=== PATIENT | female | born 1985 | race Caucasian/White ===

== ENCOUNTER 2020-11-23 12:12 | Outpatient (REF) | payer OTHER, SELFPAY ==
[2020-11-23 16:41] LABS: SARS COV2 PCR INHOUSE NEGATIVE (Negative)
== END 2020-11-23 12:13 | disposition home or self-care (01) ==
LOC: HO.LAB 12:12
PROVIDERS: Visit Provider Internal Medicine
DX: Z20.822 Contact with and (suspected) exposure to COVID-19 (principal)
CPT/HCPCS: U0003

== ENCOUNTER 2020-12-27 08:45 | Outpatient (REF) | payer OTHER, SELFPAY ==
[2020-12-27 11:26] LABS: Thyroid Stimulating Hormone 0.93 uIU/mL (0.32-4.0)
[2020-12-28 12:24] LABS: BV Int Neg Control Negative (Negative); BV Int Pos Control Positive (Positive)
[2020-12-29 13:27] LABS: Follicle Stimulating Hormone 8.1 mIU/mL; Prolactin 2.9 ng/mL
[2020-12-29 17:57] LABS: DHEA Sulfate 215 mcg/dL (23-266)
[2021-01-01 13:16] LABS: Testosterone, Free 2.5 pg/mL (0.1-6.4); Testosterone, Total 27 ng/dL (2-45)
== END 2020-12-27 08:46 | disposition home or self-care (01) ==
LOC: HO.LAB 08:45
PROVIDERS: PCP Internal Medicine; Visit Provider Advanced Practice Midwife
DX: N89.8 Other specified noninflammatory disorders of vagina (principal); R23.2 Flushing; N92.6 Irregular menstruation, unspecified; L68.0 Hirsutism; E55.9 Vitamin D deficiency, unspecified; K90.0 Celiac disease
CPT/HCPCS: 36415; 82627; 83001; 83498; 84146; 84402; 84403; 84443; 87480; 87510; 87660; 99212

== ENCOUNTER 2021-01-04 14:57 | Outpatient (REF) | payer OTHER, SELFPAY ==
--- NOTE | ~2021-01-04 | US_ITS ---
EXAMINATION: US PELVIS COMPLETE CLINICAL INFORMATION: Irregular menstruation. COMPARISON: None TECHNIQUE: Ultrasound of the pelvis is performed using both transabdominal transducer along with Doppler. Transvaginal imaging is performed due to inadequate visualization transabdominally. FINDINGS: Uterus: The uterus is anteverted and measures 10.2 x 5.2 x 6.4 cm. The double wall endometrial thickness is 10 mm. The uterus is smooth in contour and has normal myometrial echogenicity. No visible fibroid. Adnexa: Both ovaries are visualized. There is normal color flow to the adnexa. There is no ovarian torsion. There is no pelvic ascites or fluid collection. Right ovary measures 3.3 x 1.3 x 2.9 cm. Left ovary measures 3.2 x 3.1 x 2.6 cm. US/US pelvic complete IMPRESSION: Unremarkable pelvic ultrasound.
== END 2021-01-04 14:58 | disposition home or self-care (01) ==
LOC: HO.US 14:57
PROVIDERS: Visit Provider Advanced Practice Midwife
DX: N92.6 Irregular menstruation, unspecified (principal); L68.0 Hirsutism; R23.2 Flushing
CPT/HCPCS: 76856

== ENCOUNTER → 2021-01-12 11:03 | Outpatient (BNVA) | payer OTHER, SELFPAY | PROVIDERS: PCP Internal Medicine; Visit Provider Advanced Practice Midwife | DX: Z71.2 Person consulting for explanation of examination or test findings (principal); N92.6 Irregular menstruation, unspecified; L68.0 Hirsutism; R23.2 Flushing | CPT/HCPCS: Q3014 ==

== ENCOUNTER 2021-01-24 13:10 | Outpatient (REF) | payer OTHER, SELFPAY ==
[2021-01-25 06:41] LABS: CT PCR NOT DETECTED (Not Detect.); NG PCR NOT DETECTED (Not Detect.)
[2021-01-25 08:39] LABS: BV Int Neg Control Negative (Negative); BV Int Pos Control Positive (Positive)
== END 2021-01-24 13:11 | disposition home or self-care (01) ==
LOC: HO.LAB 13:10
PROVIDERS: Visit Provider Advanced Practice Midwife
DX: N89.8 Other specified noninflammatory disorders of vagina (principal)
CPT/HCPCS: 87480; 87491; 87510; 87591; 87660; 99212

== ENCOUNTER 2021-02-14 09:47 | Outpatient (REF) | payer OTHER, SELFPAY ==
[2021-02-15 10:01] LABS: BV Int Neg Control Negative (Negative); BV Int Pos Control Positive (Positive)
== END 2021-02-14 09:48 | disposition home or self-care (01) ==
LOC: HO.LAB 09:47
PROVIDERS: PCP Internal Medicine; Visit Provider Obstetrics & Gynecology
DX: N89.8 Other specified noninflammatory disorders of vagina (principal); N90.89 Other specified noninflammatory disorders of vulva and perineum
CPT/HCPCS: 87480; 87510; 87660; 99212

== ENCOUNTER 2021-05-08 11:36 | Outpatient (REF) | payer OTHER, SELFPAY | END 2021-05-08 11:37 | disposition home or self-care (01) | LOC: HO.LAB 11:36 | PROVIDERS: Visit Provider Advanced Practice Midwife | DX: Z13.89 Encounter for screening for other disorder (principal) ==

== ENCOUNTER 2021-05-10 17:29 | Outpatient (REF) | payer OTHER, SELFPAY ==
[2021-05-11 11:37] LABS: CT PCR NOT DETECTED (Not Detect.); NG PCR NOT DETECTED (Not Detect.)
[2021-05-11 11:42] LABS: BV Int Neg Control Negative (Negative); BV Int Pos Control Positive (Positive)
== END 2021-05-10 17:30 | disposition home or self-care (01) ==
LOC: HO.LNP 17:29
PROVIDERS: Visit Provider Advanced Practice Midwife
DX: Z01.419 Encounter for gynecological examination (general) (routine) without abnormal findings (principal); Z20.2 Contact with and (suspected) exposure to infections with a predominantly sexual mode of transmission
CPT/HCPCS: 87480; 87491; 87510; 87591; 87660

== ENCOUNTER 2021-05-11 12:52 | Outpatient (REF) | payer OTHER, SELFPAY ==
--- NOTE | ~2021-05-11 | MM_ITS ---
EXAMINATION: MM DIAGNOSTIC DIGITAL BREAST TOMOSYNTHESIS, BILATERAL US DIAGNOSTIC ULTRASOUND BREAST, BILATERAL CLINICAL INFORMATION: 35-year-old with soft palpable fullness noted by patient for approximately one week. Clinical exam also notes palpable area contralateral right breast 9:00-11:00 position. Prior history reduction mammoplasty 2017. The lifetime risk of breast cancer based on the Tyrer-Cuzick Model is 18%. COMPARISON: Mammography: 08/28/2018, 03/12/2017 (baseline) TECHNIQUE: Digital breast tomosynthesis is performed in both the craniocaudal and mediolateral oblique views along with computer-aided detection (CAD). Synthesized 2D images are generated from the tomosynthesis. Ultrasound of each breast is targeted to the areas of clinical concern. Grayscale imaging and color Doppler are performed without and with harmonics. Patient is able to point to the palpable concern lower left breast at time of imaging. FINDINGS: There are scattered areas of fibroglandular density (ACR BI-RADS breast composition Category b). There are no significant masses, abnormal calcifications, or other abnormalities. Parenchymal pattern is similar to prior studies. There is no developing density. No skin thickening or coarsening of the Liu's ligaments. The axilla are unremarkable. The skin contours are smooth. Targeted bilateral breast ultrasound demonstrates no cystic or solid mass, architectural abnormality, or focal duct ectasia. No skin thickening or edema tracking in the soft tissue planes. No hyperemia. Results are discussed with the patient at time of visit. Patient should be managed based on the clinical impression. If clinically indicated, further evaluation may be considered with surgical consult. Decision to proceed with biopsy should be based on clinical grounds and degree of clinical concern. MM/MM tomosynthesis diagnostic BI IMPRESSION: No mammographic evidence of malignancy or inflammatory changes. Unremarkable bilateral targeted breast ultrasound. ASSESSMENT: BI-RADS 1: Negative RECOMMENDATION: 1. Patient should be managed based on the clinical impression. If clinically indicated, further evaluation may be considered with surgical consult. Decision to proceed with biopsy should be based on clinical grounds and degree of clinical concern. 2. Otherwise, routine annual screening mammography, beginning age 40, or earlier as clinical risk factors warrant. This patient's information was entered into a reminder system with a target due date for their next mammogram.
== END 2021-05-11 12:53 | disposition home or self-care (01) ==
LOC: HO.MAMMO 12:52
PROVIDERS: PCP Internal Medicine; Visit Provider Advanced Practice Midwife
DX: N63.15 Unspecified lump in the right breast, overlapping quadrants (principal); N63.25 Unspecified lump in the left breast, overlapping quadrants
CPT/HCPCS: 76642; 77062; 77066

== ENCOUNTER 2021-08-06 19:23 | Outpatient (REF) | payer OTHER, SELFPAY ==
--- NOTE | ~2021-08-06 | MR_ITS ---
EXAMINATION: MR BRAIN WITHOUT CONTRAST. CLINICAL INFORMATION: 36-year-old with syncope and collapse COMPARISON: None TECHNIQUE: Multiplanar multisequence MR imaging of the brain was done without IV contrast. FINDINGS: Brain Volume: Within normal limits. Structural: Note is made of a 4 x 5 x 2 mm cystic structure along the posterior aspect of the splenium of the corpus callosum in the midline on 1 axial image. Etiology uncertain, but most likely a benign finding. Brain and Meninges: The brain is normal in morphology. Slightly prominent CSF capping is noted adjacent to the frontal horn of the right lateral ventricle. Otherwise the brain is normal in signal intensity. DWI sequence demonstrates no restricted diffusion to suggest acute or subacute cerebral ischemia. Gradient echo images demonstrate no evidence for hemorrhage, hemosiderin staining or abnormal mineral deposition. No extra-axial fluid collections, space-occupying process or mass effect are identified. Davis-white matter interface appears well preserved. Ventricles and Subarachnoid Spaces: The ventricular system and subarachnoid spaces appear within normal limits without hydrocephalus. Orbital Structures: The visualized orbital structures are grossly unremarkable within the limitations of the study. Vascular: Signal voids are noted in the visualized major intracranial vessels. Sinuses and Osseous Structures: There are minor degrees of mucosal thickening along the floors of both maxillary sinuses and within the ethmoid complex. Osseous marrow signal intensity appears within normal limits. MR/MR head/brain wo con IMPRESSION: 1. Essentially unremarkable noncontrast MRI of the brain. No acute intracranial process, infarct, hemorrhage, extra-axial fluid collection space-occupying process, mass effect or hydrocephalus. 2. Minor paranasal sinus mucosal thickening.
== END 2021-08-06 19:24 | disposition home or self-care (01) ==
LOC: HO.MRI 19:23
PROVIDERS: Visit Provider Internal Medicine
DX: R55 Syncope and collapse (principal)
CPT/HCPCS: 70551

== ENCOUNTER 2021-10-23 14:54 | Outpatient (REF) | payer OTHER, SELFPAY ==
--- NOTE | ~2021-10-23 | US_ITS ---
EXAMINATION: US EXTRACRANIAL CAROTID DUPLEX, BILATERAL CLINICAL INFORMATION: Syncope COMPARISON: None TECHNIQUE: Real-time ultrasound and Doppler techniques (integrating B-mode 2-D vascular images, Doppler spectral analysis and color-flow Doppler imaging) were utilized to interrogate the extracranial carotid arteries, the vertebral arteries and proximal subclavian arteries bilaterally. The degree of stenosis is determined by criteria similar to NASCET. FINDINGS: Right Side: 1. There is no significant atherosclerotic plaque seen in the bifurcation/proximal ICA region. 2. The common carotid artery PSV proximally is 128 cm/s and distally 124 cm/s. 3. The proximal internal carotid artery velocities are 118 cm/s systolic and 29 cm/s diastolic. 4. The proximal external carotid artery PSV is 114 cm/s. 5. The vertebral artery shows antegrade flow. 6. The subclavian artery waveforms are normal. Left Side: 1. There is no significant atherosclerotic plaque seen in the bifurcation/proximal ICA region. 2. The common carotid artery PSV proximally is 120 cm/s and distally 113 cm/s. 3. The proximal internal carotid artery velocities are 113 cm/s systolic and 32 cm/s diastolic. 4. The proximal external carotid artery PSV is 129 cm/s. 5. The vertebral artery shows antegrade flow. 6. The subclavian artery waveforms are normal. US/US carotid duplex BI IMPRESSION: 1. RIGHT: Normal right internal carotid artery without atherosclerotic plaque or hemodynamically significant stenosis. 2. LEFT: Normal left internal carotid artery without atherosclerotic plaque or hemodynamically significant stenosis.
== END 2021-10-23 14:55 | disposition home or self-care (01) ==
LOC: HO.US 14:54
PROVIDERS: PCP Internal Medicine; Visit Provider Internal Medicine
DX: R55 Syncope and collapse (principal)
CPT/HCPCS: 93880

== ENCOUNTER 2022-05-06 15:20 | Outpatient (REF) | payer OTHER, SELFPAY ==
[2022-05-06 16:29] LABS: Lipase 25 U/L (8-78)
[2022-05-06 16:45] LABS: Amylase 50 U/L (28-100)
[2022-05-08 13:02] LABS: Transglutaminase Ab IgG <1.0 U/mL; Transglutaminase IgA <1.0 U/mL
== END 2022-05-06 15:21 | disposition home or self-care (01) ==
LOC: HO.LAB 15:20
PROVIDERS: PCP Internal Medicine; Visit Provider Nurse Practitioner Family
DX: R10.9 Unspecified abdominal pain (principal); K21.9 Gastro-esophageal reflux disease without esophagitis
CPT/HCPCS: 36415; 82150; 83690; 86364

== ENCOUNTER 2022-05-07 07:53 | Outpatient (REF) | payer OTHER, SELFPAY ==
[2022-05-13 19:25] LABS: Pancreatic Elastase-1 177 mcg/g
== END 2022-05-07 07:54 | disposition home or self-care (01) ==
LOC: HO.LNP 07:53
PROVIDERS: Visit Provider Nurse Practitioner Family
DX: R10.9 Unspecified abdominal pain (principal)
CPT/HCPCS: 82656

== ENCOUNTER 2022-05-10 12:24 | Outpatient (REF) | payer OTHER, SELFPAY ==
[2022-05-11 13:12] LABS: BV Int Neg Control Negative (Negative); BV Int Pos Control Positive (Positive)
== END 2022-05-10 12:25 | disposition home or self-care (01) ==
LOC: HO.LNP 12:24
PROVIDERS: Visit Provider Advanced Practice Midwife
DX: N89.8 Other specified noninflammatory disorders of vagina (principal)
CPT/HCPCS: 87480; 87510; 87660

== ENCOUNTER 2022-07-03 11:01 | Outpatient (REF) | payer OTHER, SELFPAY ==
[2022-07-03 13:14] LABS: C Reactive Protein 0.28 mg/dL (< or = 0.50)
[2022-07-03 13:51] LABS: Folate 6.9 ng/mL (> or = 4.0); Vitamin B12 366 pg/mL (200-900)
[2022-07-08 16:37] LABS: Vitamin D 25-OH, D2 49 ng/mL; Vitamin D 25-OH, D3 7 ng/mL; Vitamin D 25-OH, Total 56 ng/mL (30-100)
== END 2022-07-03 11:02 | disposition home or self-care (01) ==
LOC: HO.LAB 11:01
PROVIDERS: PCP Internal Medicine; Visit Provider Nurse Practitioner Family
DX: R19.7 Diarrhea, unspecified (principal); E55.9 Vitamin D deficiency, unspecified; K58.9 Irritable bowel syndrome, unspecified; K59.00 Constipation, unspecified
CPT/HCPCS: 36415; 82306; 82607; 82746; 84443; 86140

== ENCOUNTER 2022-11-04 08:35 | Outpatient (REF) | payer BC, SELFPAY ==
--- NOTE | ~2022-11-04 | US_ITS ---
EXAMINATION: US ABDOMEN LIMITED CLINICAL INFORMATION: Right upper quadrant pain. COMPARISON: None TECHNIQUE: Real-time imaging of the right upper quadrant abdominal viscera. FINDINGS: PANCREAS: Normal. LIVER: The liver is normal in size. The liver contour is normal. Parenchymal echogenicity is normal. 1.4 cm cyst in the caudate. 2.5 cm thinly septated cyst in the right lobe. No imaging follow-up is recommended. There is no intrahepatic biliary duct dilatation seen. GALLBLADDER: Cholelithiasis. No pericholecystic fluid. The patient was not tender over the gallbladder. There is a 6.2 mm gallbladder wall polyp with a thick stalk. This is considered low risk morphology following the SRU guidelines. Recommend a follow-up ultrasound in 12 months. COMMON BILE DUCT: Normal in caliber measuring 0.2 cm in diameter. RIGHT KIDNEY: Normal. No hydronephrosis. No renal calculi or focal parenchymal lesions. The kidney measures 11.9 cm in maximum dimension. FREE FLUID: None. US/US abdomen limited IMPRESSION: 6.2 mm gallbladder wall polyp. Recommend follow-up ultrasound in 12 months.
== END 2022-11-04 08:36 | disposition home or self-care (01) ==
LOC: HO.HMGCX 08:35
PROVIDERS: PCP Internal Medicine; Visit Provider Nurse Practitioner Family
DX: R10.11 Right upper quadrant pain (principal)
CPT/HCPCS: 76705

== ENCOUNTER 2023-05-12 09:28 | Outpatient (AMB) | payer BC, SELFPAY ==
[2023-05-12 09:33] VITALS: BP 120/72; BMI 25.1
--- NOTE | 2023-05-12 09:33 | A.OFFVIS_ITS ---
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 Intake Note: Ongoing Bv currently has itching burning and discharge, hormone disruptions Pit Furnace Melter Required: No Information Interpreted: non-clinical & clinical Funeral Pre Arrangement Counselor: Funeral Pre Arrangement Counselor Present ([place]) Allergies No Known Allergies Allergy (Verified 05/12/23 09:37) Medication List - Last Reconciled 05/12/23 by Ira Morton CNM clindamycin phosphate 2% vaginal BEDTIME ergocalciferol (vitamin D2) 1,250 mcg PO QWEEK 90 days norethindrone (contraceptive) 0.35 mg PO DAILY Is last menstrual period known: No Post menopausal: No 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 She struggles with recurrent bacterial vaginosis often on and has done so for years. She has worked with dietary changes various medications boric acid awareness of what underwear she is wearing or not, and nothing really makes a difference except for she notices a recurrence related to her cycle and she feels it starts all over again after her menses on then she uses some boric acid and if she can break the cycle at that point she is okay for another while but when it gets really bad which for her involves feeling like she has little cuts on her labia she needs clindamycin cream and it is the only thing that has worked for her. She cannot tolerate the oral medications at all and the Metrogel did not work either. She says she has symptoms now. She is also undergoing a complete workup at [facility] for various digestive issues and is following a diet designed to ameliorate or less in impact of alcohol forming sugars in certain food groups including Alliums, broccolis, and CAbbages. She has not noticed a change or difference with dietary changes and the next step may be use of certain enzymes she has been having various CT scans and her gallbladder checked out okay. She has had mammograms done in the last couple of years for cysts that were found on exam and wants to defer ordering her 1st screening mammogram until she sees her primary care provider in September. She likes the norethindrone control pills that she is on and feels they are working well for her and has improved her acne as well. [facility] Medical History Pancreatic insufficiency Physical exam Near syncope Lightheadedness S/p breast implant removal BRCA negative Vitamin D deficiency Celiac disease Surgical History History of breast lift H/O abdominoplasty H/O breast augmentation Hx of wisdom tooth extraction Family History Maternal Grandmother Ovarian cancer Mother Musa esophagus Social History Housing: House Alcohol intake: former Patient Tobacco Use Status: Never used Tobacco e-Cigarette/Vaping Use: Never Used Second Hand Smoke Exposure: No service: No Current occupational status: employed Current occupational exposures/hazards: No Cognitive needs: No Hearing needs: No Vision needs: Yes (glasses ) Female Reproductive History Menstrual Age of Menarche: 10 Duration of menses: 6-7 days control method: pills Total pregnancies: 2 Full term: 2 Number of Living Children: 2 Date of last pap smear: 02/19/19 (negative) History of abnormal pap smear: No Date of Mammogram: 05/11/21 Physical Exam Vital Signs: Last Vital Signs BP 120/72 05/12/23 09:33 BMI result Body Mass Index 25.1 Const Other: Well-healed scars from various surgeries, tattoos. General: healthy appearing, comfortable, no acute distress, well developed and alert Nutritional Appearance: average body habitus Orientation/consciousness: patient oriented x3 Limitations: no limitations HEENT Head: Yes normocephalic Neck Neck: Yes normal visual inspection Thyroid: Thyroid normal Chest Chest palpation & inspection: normal inspection of the chest Breast/axilla inspection: normal inspection of the breasts and normal inspection of the axillae Breast/axilla palpation: normal palpation of the breasts and normal palpation of the axillae Resp Effort & Inspection: normal respiratory effort GI Inspection: Yes normal to inspection, No Abdominal wall edema and No distended Palpation (GI): Soft to palpation and nontender Other: External labia appear slightly dry, no cuts visible. Vagina is pink moist with discharge that could be consistent with the 2nd half of menstrual cycle cervix is multiparous pink smooth with the same white discharge. No visible inflammation today cervix nontender uterus nontender midposition not enlarged adnexa nontender good tone with Kegel. General: Yes bladder normal to palpation External Female Exam: normal external appearance and normal appearance of the urethra Speculum Exam - Vagina: normal appearance of the vagina, normal palpation and normal vaginal discharge Speculum Exam - Cervix: normal appearance of the cervix, normal palpation and nontender Bimanual exam- vagina & uterus: normal bimanual exam, normal palpation, uterine size normal, bladder normal to palpation, consistency normal, normal palpation, uterine mobility normal, uterine shape normal, No Cervical tenderness present, non-tender and no cervical motion tenderness Bimanual Exam- Adnexa, other: normal adnexae, no masses, normal and No adnexal tenderness Neuro General: patient oriented x3 Assessment & Plan Assessment & Plan (1) Bacterial vaginosis: Comment: frequent, almost chronic, uses boric acid capsules regularly, Code(s): N76.0 - Acute vaginitis; B96.89 - Other specified bacterial agents as the cause of diseases classified elsewhere (2) Surveillance for control, oral contraceptives: Code(s): Z30.41 - Encounter for surveillance of contraceptive pills (3) Vaginal discharge: Code(s): N89.8 - Other specified noninflammatory disorders of vagina (4) Well woman exam with routine gynecological exam: Code(s): Z01.419 - Encounter for gynecological examination (general) (routine) without abnormal findings (5) Breast cancer screening: Code(s): Z12.39 - Encounter for other screening for malignant neoplasm of breast Plan -----Discussed in this visit the following: healthy balanced diet, regular and consistent exercise, getting recommended health screens, doing the best she can for her particular health concerns, kegel exercises, pap smear screening and followup recommendations, mammography screening and SBE, normal changes in cycles in her life stage--- . Discussed her BV at length she is happy with her current regimes of using boric acid when she feels she needs it and clindamycin cream when she feels that it is exacerbated. I did discuss that the symptoms she is describing do not exactly sound like classic bacterial vaginosis to me and I worry still about over treatment, but she does not believe this is the case, and she is managing it the best way possible. Discussed that she is hopeful, and it makes sense, that if she can deal with her gut jed issues with her enzymes that maybe it may impart improvement with vaginal jed as well. She is continuing evaluations and discussions with specialists at [facility] in regards to this. Pap smear was done as well as testing for GC chlamydia trich Gardnerella and Jacinta. Prescription sent for her control pills for another year plus. As she does like this method of control in it is working well for her and she thinks it works well with her body even though she has 7 day periods. She does not wish to explore any other method at this time. Prescription also sent for the clindamycin cream that she requested and since she is happy to use it as she sees fit and when she believes she needs it, it makes sense for her to continue with this regimen as she feels very certain about her symptoms and what she is doing about it at this time. Orders: Orders Bacterial Vaginosis Panel Today Z01.419 - Encounter for gynecological examination (general) (routine) without abnormal findings CT NG by PCR Today Z01.419 - Encounter for gynecological examination (general) (routine) without abnormal findings Pap Smear Today Z01.419 - Encounter for gynecological examination (general) (routine) without abnormal findings Medications: New clindamycin phosphate 2% Use p.r.n. for definitive symptoms of bacterial vaginosis. 1 appful vaginal BEDTIME 40 grams 5RF Refilled norethindrone (contraceptive) 0.35 mg PO DAILY 84 tabs 4RF Coding Level of Care Code Est Pt Prev Care [id number]([id number]) Diagnoses Bacterial vaginosis N76.0; B96.89 Surveillance for control, oral contraceptives Z30.41 Vaginal discharge N89.8 Well woman exam with routine gynecological exam Z01.419 Breast cancer screening Z12.39
== END 2023-05-12 10:28 | disposition home or self-care (01) ==
PROVIDERS: PCP Internal Medicine; Visit Provider Advanced Practice Midwife
DX: Z01.419 Encounter for gynecological examination (general) (routine) without abnormal findings (principal); N76.0 Acute vaginitis; B96.89 Other specified bacterial agents as the cause of diseases classified elsewhere
CPT/HCPCS: 99395

== ENCOUNTER 2023-05-12 09:28 | Outpatient (REF) | payer BC, SELFPAY ==
[2023-05-13 09:55] LABS: CT PCR NOT DETECTED (Not Detect.); NG PCR NOT DETECTED (Not Detect.)
[2023-05-13 10:21] LABS: BV Int Neg Control Negative (Negative); BV Int Pos Control Positive (Positive)
[2023-05-15 04:54] LABS: HPV mRNA E6/E7 rflx Not Detected (Not Detected)
== END 2023-05-12 09:29 | disposition home or self-care (01) ==
LOC: HO.LNP 09:28
PROVIDERS: PCP Internal Medicine; Visit Provider Advanced Practice Midwife
DX: Z01.419 Encounter for gynecological examination (general) (routine) without abnormal findings (principal); Z11.51 Encounter for screening for human papillomavirus (HPV); Z20.2 Contact with and (suspected) exposure to infections with a predominantly sexual mode of transmission; N76.0 Acute vaginitis; B96.89 Other specified bacterial agents as the cause of diseases classified elsewhere
CPT/HCPCS: 0353U; 87480; 87510; 87624; 87660; 88142